=== PATIENT | female | born 1950 | race Caucasian/White ===

== ENCOUNTER → 2019-09-14 13:43 | Outpatient (CLI) | payer MEDICARE, OTHER, SELFPAY ==
[2019-09-14 14:00] LABS: International Normalized Ratio 2.1; Prothrombin Time (Protime)PT. 23.9 SECONDS (11.7-14.9)
== END ==
PROVIDERS: Family Provider Family Medicine; PCP Family Medicine; Referring Provider Internal Medicine Hematology & Oncology; Visit Provider Internal Medicine Hematology & Oncology
DX: C64.2 Malignant neoplasm of left kidney, except renal pelvis (principal)
CPT/HCPCS: 85610

== ENCOUNTER 2019-10-04 16:02 | Emergency (ER) | payer MEDICARE, OTHER, SELFPAY ==
[2019-10-04 16:03] VITALS: BP 171/85; PULSE 65; RESP 15; TEMP 36.7; O2SAT 100; BMI 24.8
--- NOTE | 2019-10-04 16:49 | ED.DCSUM_ITS ---
- ER Visit Summary Date of Service: 10/04/19 Chief Complaint: Abdominal discomfort and bloating. History of Present Illness: The patient is a 69 F history of renal CA with chemotherapy she is been treated for the last 13 years. Also history of A. fib. Prior thyroidectomy due to thyroid cancer. And she also has portal vein thrombosis for which she is on the Coumadin. Patient states due to a new regimen of chemotherapy she was actually having a lot of bowel movements. Then that now has seemed to slow down. And she may be having some constipation. She denies any fever. She has had abdominal bloating with some discomfort and nausea without vomiting. No dysuria. No fever. Physical Examination: Older female no acute distress. Vital signs are stable and afebrile. Pulse ox 90% room air no signs hypoxia. H EENT exam unremarkable. Moist with membranes. Neck nontender. Lungs clear to auscultation. Heart regular rhythm. Abdomen soft. Mildly distended. No peritoneal signs. No significant tenderness. Positive bowel sounds. No obvious obstruction. Patient is moving all 4 extremities. No edema. Neurologically she is awake and alert with no focal motor deficits. Test Results: White count 2. Hemoglobin 15 and platelet count of 38,000 she is on chemotherapy and says her platelets have been running around 36,000. Electrolytes unremarkable normal creatinine and gap. Liver enzymes were slightly elevated. Lipase was normal at 148 and her INR was subtherapeutic at 1.6 but stated she just got restarted on her Coumadin. UA showed some blood but otherwise no signs of infection. KUB 2 views read by myself and the radiologist showed increased bowel gas but no obvious signs of obstruction. No air-fluid levels. No free air. CAT scan abdomen pelvis with IV contrast showed possible metastatic disease but no obvious obstruction. Reviewed by me read by the radiologist. Emergency Department Course and Treatment: KUB with screening labs. Should be treated with IV morphine and Zofran. She requested something for her pain. Multiple repeat exams she was doing well at 0 5 PM. Still with some mild distention. She underwent a CT of the abdomen and pelvis with contrast and were awaiting the read. Repeat exam at 2137 and 2204 she is doing well. She will be discharged home. Treatment Plan: Zofran as needed for nausea. Follow-up with her oncologist. Disposition: dc Impression: Acute abdominal pain of uncertain etiology History of renal CA with metastases Chronic thrombocytopenia from chemotherapy This note was generated with [employer] dictation software. It may contain incorrect words, spelling, and punctuation that were not noted in review of the chart prior to signing ED Disposition - Plan for ED Patient: Referrals: Marcellus Pascual MD [Primary Care Provider] -
--- NOTE | 2019-10-04 16:53 | RAD_ITS ---
STUDY: X-RAY - ABDOMEN/PELVIS REASON FOR EXAM: Female, 69 years old. ABDOMEN DISTENTION TECHNIQUE: 2 views of the abdomen COMPARISON: None. FINDINGS: Normal visualized lung bases. This are noted throughout the abdomen. No gross evidence for free air. Multiple gaseously distended loops of both large and small bowel. Prominent rectal stool burden. Normal soft tissue structures. Normal visualized osseous structures. RAD/Abdomen Single View IMPRESSION: Gaseously distended loops of large and small bowel in a nonspecific pattern. Correlate clinically to exclude obstruction. Electronically Signed: Christiano Young, at 19:04 EST Tel , Service support ,
[2019-10-04 17:02] LABS: Absolute Lymphocyte Count 0.55 X10^3/uL (0.83-4.51); Absolute Neutrophil Count 2.2 X10^3/uL (2.0-7.7); Basophil# 0.01 X10^3/uL; Basophil% 0.3 % (0-1); Hematocrit 43.3 % (37-47); Hemoglobin 15.7 g/dL (12.0-15.0); Lymphocyte # 0.55 X10^3/ul (4.0); Lymphocyte % 19.2 % (19-41); Mean Corp Hgb Conc 36.3 g/dL (32-36); Mean Corpuscular Hgb 32.2 pg (27.0-32.0); Mean Corpuscular Volume 88.7 fL (81-99); Mean Platelet Vol. 9.7 fl (6.2-12.0); Monocyte# 0.15 X10^3/uL; Monocyte% 5.2 % (0-10); NRBC Flagged by Analyzer 0 % (0-5); Neutrophil # 2.15 X10^3/uL (2.7-7.7); POSITIVE COUNT YES; POSITIVE DIFFERENTIAL YES; RBC Distribution Width CV 13.6 % (11.6-14.6); RBC Distribution Width SD 42.5 fl (35.1-43.9); Red Blood Count 4.88 M/mm3 (4.2-5.4); White Blood Count 2.9 K/mm3 (4.4-11.0)
[2019-10-04 17:11] LABS: Bacteria 0 SEEN /hpf (None Seen)
[2019-10-04 17:12] LABS: AST(SGOT) 52 U/L (15-37); Alanine Aminotransfer ALT/SGPT 65 U/L (13-56); Albumin, Serum 3.6 g/dL (3.2-5.0); Alkaline Phosphatase 94 U/L (45-117); Anion Gap 6 (5-15); BUN 12 mg/dL (7-18); BUN/Creat Ratio 13.4 RATIO (10-20); Bilirubin, Direct 0.57 mg/dL (0.00-0.30); Calcium,Total 8.5 mg/dL (8.5-10.1); Chloride 103 mmol/L (98-107); Creatinine, Serum 0.89 mg/dL (0.55-1.02); EST Glomerular Filtration Rate 66 mL/min (>60); Est Glom Filt Rate - Afr Amer 80 mL/min (>60); Estimated Creatinine Clearance 55.06 ml/min; Globulin 3.9 g/dL (2.2-4.2); Glucose 130 mg/dL (74-106); Lipase 148 U/L (73-393); Potassium 3.5 mmol/L (3.5-5.1); Protein, Total 7.5 g/dL (6.4-8.2); Sodium Level 135 mmol/L (136-145)
[2019-10-04] MEDS: Ondansetron 4 MG/2 ML Vial IV (17:13)
[2019-10-04 17:19] LABS: International Normalized Ratio 1.6; Prothrombin Time (Protime)PT. 18.9 SECONDS (11.7-14.9)
[2019-10-04] MEDS: HYDROmorphone 0.5 MG/0.5 ML SYRINGE 0.25 MG IV ×2 (17:25→18:28)
[2019-10-04] MEDS: 0.9% Normal Saline 1,000 ML 125 ML IV (17:27)
[2019-10-04 17:38] LABS: Color, Urine Yellow (Yellow); Glucose, Dipstick Normal (Normal); Ketone-Dipstick 50 mg/dl (Negative); Leukocyte Esterase-Dipstick 25 /ul (Negative); Nitrite-Dipstick Negative (Negative); Occult Blood-Urine 150 /ul (Negative); Protein-Dipstick 30 mg/dl (Negative); Specific Gravity, Urine 1.025 (1.002-1.030); Urine Bilirubin Dipstick Negative (Negative); Urine Clarity Clear (Clear); Urine Urobilinogen 1 mg/dl (Normal)
[2019-10-04 17:40] LABS: Mucous, Urine RARE /hpf (<or=2+); Red Blood Cells-Urine 10-25 SEEN /hpf (0-5); White Blood Cells 0-5 SEEN /hpf (0-5)
[2019-10-04 17:50] LABS: Differential Indicated SCAN CRITERIA MET; Platelet Count 38 K/mm3 (150-450)
[2019-10-04 18:00] LABS: Acanthocytes RARE; Platelet Estimate MKD DEC (ADEQ)
[2019-10-04 18:01] LABS: Differential Comment SCANNED; Reactive Lymphocyte RARE
[2019-10-04 18:29] VITALS: BP 156/80; PULSE 62; RESP 14; O2SAT 99
--- NOTE | 2019-10-04 19:47 | CT_ITS ---
STUDY: CT ABDOMEN AND PELVIS WITH CONTRAST REASON FOR EXAM: Female, 69 years old. ABD PAIN WITH DISTENTION. History of renal cancer and metastatic disease to the pancreas. RADIATION DOSAGE (If Supplied By Facility): CTDIvol = ( 13.05 ) mGy, DLP = ( 836.98 ) mGycm TECHNIQUE: Transaxial images were obtained from the dome of the diaphragm to the symphysis pubis without oral contrast. IV 100mL Isovue-[id number] was administered. Sagittal and coronal images were reconstructed. Individualized dose optimization techniques were used for this CT. COMPARISON: None. FINDINGS: The visualized lung bases are unremarkable. The visualized portions of the heart are within normal limits. There is decreased attenuation of the liver consistent with steatosis. Diffusely irregular hyperenhancing gallbladder. Normal spleen. Markedly irregular pancreas with enlarged hyperenhancing pancreatic head and uncinate process and cystic-appearing foci at the pancreatic body. Normal right adrenal glands. Left adrenal not visualized. Normal right kidney. Left kidney is absent. Distended visualized stomach. Normal small intestine. Colon is distended specifically the cecum and descending colon. There is irregular wall thickening and hyperenhancement of the cecum. There is non-visualization of the appendix. There is diffuse atherosclerotic calcification of the abdominal aorta, without a demonstrated aneurysm. Normal inferior vena cava. Normal retroperitoneum. Normal urinary bladder. Normal visualized uterus. 3.2 cm left adnexal cyst Normal abdominal wall. Normal osseous structures. CT/Abdomen/Pelvis W IV Cont ONLY IMPRESSION: Distention of the cecum and ascending colon with associated wall thickening and hyperenhancement, correlate clinically for acute infectious process. Cannot exclude malignant involvement. Marked heterogeneity and enlargement of the pancreas is likely consistent with given clinical history of metastatic disease at this location. Correlate with prior imaging to assess for progression of disease. Heterogeneity and hyperenhancement of the gallbladder wall may also indicate metastatic involvement in this location. 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 Electronically Signed: Christiano Young, at 21:32 EST Tel , Service support ,
[2019-10-04 21:34] VITALS: BP 156/74; PULSE 67; RESP 14; O2SAT 97
--- NOTE | 2019-10-04 22:06 | ED.DEP ---
ED Disposition - Plan for ED Patient: Disposition: Home or Assisted Living Instructions: ABDOMINAL PAIN, Unknown Cause, (Female) Prescriptions: Ondansetron [Zofran Odt] 4 mg PO Q8H PRN PRN #10 tab PRN Reason: Nausea Prescription Printed Referrals: Marcellus Pascual MD [Primary Care Provider] - As Needed Mani Silverman MD [STAFF PHYSICIAN] - As Needed Additional Instructions: Fluids and rest. Increase diet slowly as tolerated. Zofran as needed for nausea you may swallow it or let it dissolve underneath your tongue. Follow-up with Dr. Silverman your primary care physician if not improving.
[2019-10-05 12:37] LABS: Pathologist Review Reviewed
== END 2019-10-04 22:35 | disposition home or self-care (01) ==
PROVIDERS: Emergency Provider Emergency Medicine; Family Provider Family Medicine; PCP Family Medicine
DX: R10.9 Unspecified abdominal pain (principal); D69.59 Other secondary thrombocytopenia; T45.1X5A Adverse effect of antineoplastic and immunosuppressive drugs, initial encounter; Y92.9 Unspecified place or not applicable; C64.9 Malignant neoplasm of unspecified kidney, except renal pelvis; C78.89 Secondary malignant neoplasm of other digestive organs; Z85.850 Personal history of malignant neoplasm of thyroid; I81 Portal vein thrombosis; I48.91 Unspecified atrial fibrillation; Z79.01 Long term (current) use of anticoagulants
CPT/HCPCS: 74018; 74177; 80048; 80076; 81001; 83690; 85025; 85610; 96374; 96375; 96376; 99283; J7030; Q9967; A4216; J2405

== ENCOUNTER → 2020-05-17 15:10 | Outpatient (CLI) | payer MEDICARE, OTHER, SELFPAY ==
[2020-05-17 16:09] LABS: International Normalized Ratio 1.7
== END ==
PROVIDERS: PCP Family Medicine; Visit Provider Internal Medicine Hematology & Oncology
DX: I81 Portal vein thrombosis (principal)
CPT/HCPCS: 85610